=== PATIENT | male | born 1995 | race Caucasian/White ===

== ENCOUNTER 2017-11-10 15:14 | Emergency (ER) | payer SELFPAY ==
[2017-11-10] VITALS (7 sets, daily range): BP systolic 109–133; BP diastolic 58–76; PULSE 71–76; RESP 16–18; TEMP 97.5; O2SAT 97–99
[~2017-11-10] VITALS: Ht 154.9 cm; Wt 68.0 kg
--- NOTE | 2017-11-10 17:18 | PD ---
HPI Chief Complaint: Abdominal Pain Time Seen by Provider: 16:56 Travel History International Travel<30 days: No Contact w/Intl Traveler<30days: No History of Present Illness HPI This is a 22-year-old male who presents to the emergency department with 4 days of lower abdominal pain, constant, severe, radiating down into the penis and scrotum with no associated fevers or chills. He does have some dysuria. He denies any diarrhea or vomiting. He denies any discharge from his penis. He says his never had pain like this before. He denies any hematuria. He's never had surgery on his abdomen. There is a significantly which barrier and history is obtained via video room maid. [facility] Past Medical History Medical History: Denies Significant Hx Past Surgical History Surgical History: No Previous Surgery Social History Narrative Social History Moved from [facility] 3 years ago Alcohol Use: No Tobacco Use: No Allergies-Medications (Allergen,Severity, Reaction): Coded Allergies: No Known Allergies (Verified Allergy, Unknown, 11/10/17) Reported Meds & Prescriptions Reported Meds & Active Scripts Active No Active Prescriptions or Reported Medications Review of Systems Except as stated in HPI: all other systems reviewed are Neg Physical Exam Narrative GENERAL:Well appearing, no acute distress SKIN: Focused skin assessment warm and dry. HEAD: Atraumatic. Normocephalic. EYES: Pupils equal and round. No injection or drainage. ENT: Moist mucous membranes NECK: Trachea midline. CARDIOVASCULAR: Regular rate and rhythm. No murmur appreciated. RESPIRATORY: Clear to auscultation. Breath sounds equal bilaterally. GASTROINTESTINAL: Abdomen soft, tender to palpation in the suprapubic region and left groin area : Tender to palpation of the scrotum bilaterally with no urethral discharge. Normal cremasteric reflex bilaterally. MUSCULOSKELETAL: No obvious deformities. NEUROLOGICAL: Awake and alert. No obvious cranial nerve deficits. Moving all extremities. PSYCHIATRIC: Appropriate mood and affect; insight and judgment normal. Data Data Last Documented VS Vital Signs Date Time Temp Pulse Resp B/P (MAP) Pulse Ox O2 Delivery O2 Flow Rate FiO2 11/10/17 18:15 71 18 112/65 (81) 97 Room Air 11/10/17 17:23 97.5 Orders Orders Complete Blood Count With Diff (11/10/17 17:08) Comprehensive Metabolic Panel (11/10/17 17:08) Lipase (12/18/17 17:08) Urinalysis - C+S If Indicated (11/10/17 17:08) Ct Abd/Pel W/O Iv Contrast (11/10/17 17:08) Iv Access Insert/Monitor (11/10/17 17:08) Ecg Monitoring (11/10/17 17:08) Oximetry (11/10/17 17:08) Us Testicles W Doppler (11/10/17 ) Morphine Inj (Morphine Inj) (11/10/17 18:00) Labs Laboratory Tests Test 11/10/17 17:15 11/10/17 17:20 Urine Color YELLOW Urine Turbidity CLOUDY Urine pH 8.0 Urine Specific [place] 1.024 Urine Protein NEG mg/dL Urine Glucose (UA) NEG mg/dL Urine Ketones NEG mg/dL Urine Occult Blood NEG Urine Nitrite NEG Urine Bilirubin NEG Urine Leukocyte Esterase NEG Urine Squamous Epithelial Cells 0-5 /hpf Urine Amorphous Sediment LARGE Microscopic Urinalysis Comment CULT NOT INDICATED White Blood Count 8.1 TH/MM3 Red Blood Count 5.16 MIL/MM3 Hemoglobin 15.3 GM/DL Hematocrit 45.7 % Mean Corpuscular Volume 88.6 FL Mean Corpuscular Hemoglobin 29.7 PG Mean Corpuscular Hemoglobin Concent 33.5 % Red Cell Distribution Width 12.7 % Platelet Count 294 TH/MM3 Mean Platelet Volume 7.4 FL Neutrophils (%) (Auto) 62.2 % Lymphocytes (%) (Auto) 26.8 % Monocytes (%) (Auto) 7.7 % Eosinophils (%) (Auto) 1.2 % Basophils (%) (Auto) 2.1 % Neutrophils # (Auto) 5.0 TH/MM3 Lymphocytes # (Auto) 2.2 TH/MM3 Monocytes # (Auto) 0.6 TH/MM3 Eosinophils # (Auto) 0.1 TH/MM3 Basophils # (Auto) 0.2 TH/MM3 CBC Comment DIFF FINAL Differential Comment Blood Urea Nitrogen 19 MG/DL Creatinine 1.10 MG/DL Random Glucose 98 MG/DL Total Protein 7.8 GM/DL Albumin 4.1 GM/DL Calcium Level 8.7 MG/DL Alkaline Phosphatase 66 U/L Aspartate Amino Transf (AST/SGOT) 21 U/L Alanine Aminotransferase (ALT/SGPT) 28 U/L Total Bilirubin 0.4 MG/DL Sodium Level 138 MEQ/L Potassium Level 4.5 MEQ/L Chloride Level 104 MEQ/L Carbon Dioxide Level 28.6 MEQ/L Anion Gap 5 MEQ/L Estimat Glomerular Filtration Rate 83 ML/MIN Lipase 138 U/L MDM Medical Decision Making Medical Screen Exam Complete: Yes Emergency Medical Condition: Yes Interpretation(s) Afebrile, no tachycardia, normotensive No leukocytosis Electrolytes are reassuring Urinalysis is negative for infection CT abdomen and pelvis is negative for kidney stone Differential Diagnosis Nephrolithiasis, inguinal hernia, testicular torsion, epididymitis, musculoskeletal pain Narrative Course This is a 22-year-old [place]-speaking only male who presents to the emergency department with left-sided groin pain that's been going on for 4 days. He appears uncomfortable on exam. He is tender in the very low groin area and suprapubic region. I don't appreciate an obvious hernia, and he has bilateral intact cremasteric reflexes with no obvious testicular torsion on clinical exam. Labs are obtained which were reassuring. CT abdomen and pelvis was negative for kidney stone. Scrotal ultrasound will be obtained to definitively rule out testicular torsion. If negative patient can be treated for likely musculoskeletal pain and discharged. Scripts No Active Prescriptions or Reported Meds Nataly Oquendo MD Nov 10, 2017 17:18
[2017-11-10 17:30] LABS: BASOPHIL # 0.2 TH/MM3 (0-0.2); BASOPHIL % 2.1 % (0.0-2.0); EOSINOPHIL # 0.1 TH/MM3 (0-0.4); EOSINOPHIL % 1.2 % (0.0-4.0); HEMATOCRIT 45.7 % (39.0-51.0); HEMOGLOBIN 15.3 GM/DL (13.0-17.0); LYMPH % 26.8 % (9.0-44.0); LYMPHOCYTE # 2.2 TH/MM3 (1.0-4.8); MEAN CELL VOLUME 88.6 FL (80.0-100.0); MEAN CORPUSCULAR HEMOGLOBIN 29.7 PG (27.0-34.0); MEAN CORPUSCULAR HGB CONC 33.5 % (32.0-36.0); MEAN PLATELET VOLUME 7.4 FL (7.0-11.0); MONO % 7.7 % (0.0-8.0); MONOCYTE # 0.6 TH/MM3 (0-0.9); NEUT % 62.2 % (16.0-70.0); PLATELET COUNT 294 TH/MM3 (150-450); RED BLOOD COUNT 5.16 MIL/MM3 (4.50-5.90); RED CELL DISTRIBUTION WIDTH 12.7 % (11.6-17.2); WHITE BLOOD COUNT 8.1 TH/MM3 (4.0-11.0)
[2017-11-10 17:44] LABS: CHLORIDE 104 MEQ/L (98-107); SODIUM (NA) 138 MEQ/L (136-145)
[2017-11-10 17:48] LABS: ALBUMIN 4.1 GM/DL (3.4-5.0); BICARBONATE 28.6 MEQ/L (21.0-32.0); CALCIUM 8.7 MG/DL (8.5-10.1); GLUCOSE,RANDOM 98 MG/DL (74-106); LIPASE 138 U/L (73-393)
[2017-11-10 17:49] LABS: BLOOD UREA NITROGEN 19 MG/DL (7-18)
[2017-11-10 17:51] LABS: ALT (GPT) 28 U/L (12-78); AST (GOT) 21 U/L (15-37)
[2017-11-10 17:52] LABS: GLOMERULAR FILTRATION RATE 83 ML/MIN (>89)
[2017-11-10 17:53] LABS: TOTAL BILIRUBIN ADULT 0.4 MG/DL (0.2-1.0); TOTAL PROTEIN 7.8 GM/DL (6.4-8.2)
[2017-11-10 17:54] LABS: ALKALINE PHOSPHATASE 66 U/L (45-117)
[2017-11-10] MEDS ORDERED: MORPHINE SULFATE 4 MG/ML INJ IV PUSH ONE (18:00)
--- NOTE | 2017-11-10 18:11 | RADRPT ---
EXAM DATE/TIME: 11/10/2017 17:44 [facility] COMPARISON: No previous studies available for comparison. INDICATIONS : Lower abdominal pain radiating to inguinal area. ORAL CONTRAST: No oral contrast ingested. RADIATION DOSE: 8.70 CTDIvol (mGy) ; Patient motion MEDICAL HISTORY : None SURGICAL HISTORY : None. ENCOUNTER: Initial ACUITY: 4 - 6 days PAIN SCALE: 5/10 LOCATION: lower quadrant TECHNIQUE: Renal colic protocol. Volumetric scanning of the abdomen and pelvis was performed. Using automated exposure control and adjustment of the mA and/or kV according to patient size, radiation dose was kep t as low as reasonably achievable to obtain optimal diagnostic quality images. DICOM format image da ta is available electronically for review and comparison. FINDINGS: Right side: No calcified renal stones. No evidence of hydronephrosis. No stones along the right ureter. Left side: No calcified stones or hydronephrosis. Normal diameter left ureter without calcified stones. Bladder: Smooth margins. No calcifications within the lumen. Other: No dilated loops of small or large bowel. No calcified gallstones. Abdominal aorta is normal in dim ension. No evidence of free fluid. Osseous structures are grossly intact. CONCLUSION: Negative renal colic CT. Coy Welch MD on November 10, 2017 at 18:05 Board Certified Radiologist. This report was verified electronically.
[2017-11-10 18:15] LABS: BILIRUBIN, URINE NEG (NEG); BLOOD, URINE NEG (NEG); GLUCOSE,URINE NEG (NEG); KETONE, URINE NEG (NEG); NITRITE,URINE NEG (NEG); URINE LEUKOCYTE ESTERASE NEG (NEG)
[2017-11-10 18:18] LABS: URINE COLOR YELLOW (YELLW/STRAW)
[2017-11-10 18:19] LABS: AMORPHOUS SEDIMENT, URINE LARGE; SQUAMOUS EPITHELIAL CELL URINE 0-5 /hpf (0-5)
--- NOTE | 2017-11-10 19:26 | PD ---
Data Data Last Documented VS Vital Signs Date Time Temp Pulse Resp B/P (MAP) Pulse Ox O2 Delivery O2 Flow Rate FiO2 11/10/17 20:48 77 16 109/58 (75) 97 11/10/17 19:00 Room Air 11/10/17 17:23 97.5 Orders Orders Complete Blood Count With Diff (11/10/17 17:08) Comprehensive Metabolic Panel (11/10/17 17:08) Lipase (11/10/17 17:08) Urinalysis - C+S If Indicated (11/10/17 17:08) Ct Abd/Pel W/O Iv Contrast (11/10/17 17:08) Iv Access Insert/Monitor (11/10/17 17:08) Ecg Monitoring (11/10/17 17:08) Oximetry (11/10/17 17:08) Us Testicles W Doppler (11/10/17 ) Morphine Inj (Morphine Inj) (11/10/17 18:00) Ed Discharge Order (11/10/17 19:49) Ciprofloxacin (Cipro) (11/10/17 20:15) Labs Laboratory Tests Test 11/10/17 17:15 11/10/17 17:20 Urine Color YELLOW Urine Turbidity CLOUDY Urine pH 8.0 Urine Specific [place] 1.024 Urine Protein NEG mg/dL Urine Glucose (UA) NEG mg/dL Urine Ketones NEG mg/dL Urine Occult Blood NEG Urine Nitrite NEG Urine Bilirubin NEG Urine Leukocyte Esterase NEG Urine Squamous Epithelial Cells 0-5 /hpf Urine Amorphous Sediment LARGE Microscopic Urinalysis Comment CULT NOT INDICATED White Blood Count 8.1 TH/MM3 Red Blood Count 5.16 MIL/MM3 Hemoglobin 15.3 GM/DL Hematocrit 45.7 % Mean Corpuscular Volume 88.6 FL Mean Corpuscular Hemoglobin 29.7 PG Mean Corpuscular Hemoglobin Concent 33.5 % Red Cell Distribution Width 12.7 % Platelet Count 294 TH/MM3 Mean Platelet Volume 7.4 FL Neutrophils (%) (Auto) 62.2 % Lymphocytes (%) (Auto) 26.8 % Monocytes (%) (Auto) 7.7 % Eosinophils (%) (Auto) 1.2 % Basophils (%) (Auto) 2.1 % Neutrophils # (Auto) 5.0 TH/MM3 Lymphocytes # (Auto) 2.2 TH/MM3 Monocytes # (Auto) 0.6 TH/MM3 Eosinophils # (Auto) 0.1 TH/MM3 Basophils # (Auto) 0.2 TH/MM3 CBC Comment DIFF FINAL Differential Comment Blood Urea Nitrogen 19 MG/DL Creatinine 1.10 MG/DL Random Glucose 98 MG/DL Total Protein 7.8 GM/DL Albumin 4.1 GM/DL Calcium Level 8.7 MG/DL Alkaline Phosphatase 66 U/L Aspartate Amino Transf (AST/SGOT) 21 U/L Alanine Aminotransferase (ALT/SGPT) 28 U/L Total Bilirubin 0.4 MG/DL Sodium Level 138 MEQ/L Potassium Level 4.5 MEQ/L Chloride Level 104 MEQ/L Carbon Dioxide Level 28.6 MEQ/L Anion Gap 5 MEQ/L Estimat Glomerular Filtration Rate 83 ML/MIN Lipase 138 U/L MDM Medical Record Reviewed: Yes Supervised Visit with PHUONG: No Narrative Course CBC & BMP Diagram 11/10/17 17:20 Total Protein 7.8, Albumin 4.1, Calcium Level 8.7, Alkaline Phosphatase 66, Aspartate Amino Transf (AST/SGOT) 21, Alanine Aminotransferase (ALT/SGPT) 28, Total Bilirubin 0.4 Last Impressions Abdomen/Pelvis CT 11/10/17 1708 Signed Impressions: Service Date/Time: Friday, November 10, 2017 17:44 - CONCLUSION: Negative renal colic CT. Coy Welch MD Scrotum Ultrasound 11/10/17 0000 Signed Impressions: Service Date/Time: Friday, November 10, 2017 18:34 - CONCLUSION: 1. Normal sonographic appearance of the testicles and intact flow by color Doppler. 2. Small bilateral hydroceles. Coy Welch MD Etiology of the patient's complaint is nonspecific. Short course of ciprofloxacin is not totally unreasonable given the relative prominence of inguinal lymph nodes bilaterally. Patient reports to the suprapubic/pubic bones distribution is the principal area of pain and on exam there is no tenderness there. Increased hydration. Motrin as needed discussed. Patient reassured her verbalized understanding and agreement. He was offered a Georgian- speaking helmet coverer however was in agreement with the undersigned providing translation services. Diagnosis Primary Impression: Groin pain Qualified Codes: R10.30 - Lower abdominal pain, unspecified Referrals: Primary Care Physician 2 days Med/Other Pt SpecificInfo: Prescription(s) given Scripts Ibuprofen (Ibuprofen) 600 Mg Tab 600 MG PO Q8H Y for PAIN for 5 Days, #15 TAB 0 Refills Prov: Kolton Ortiz MD 11/10/17 Ciprofloxacin (Cipro) 500 Mg Tab 500 MG PO BID for Infection for 5 Days, #10 TAB 0 Refills Prov: Kolton Ortiz MD 11/10/17 Disposition: 01 DISCHARGE HOME Condition: Stable Kolton Ortiz MD Nov 10, 2017 19:26
--- NOTE | 2017-11-10 19:34 | RADRPT ---
EXAM DATE/TIME: 11/10/2017 18:34 [facility] COMPARISON: No previous studies available for comparison. INDICATIONS : Scrotal pain. MEDICAL HISTORY : Lower abdominal pain that radiates to the penis and scrotum. SURGICAL HISTORY : None. ENCOUNTER: Initial ACUITY: 4 - 6 days PAIN SCORE: 5/10 LOCATION: Bilateral scrotum. MEASUREMENTS: RIGHT TESTICLE: 4.3 x 3.0 x 2.2cm LEFT TESTICLE: 4.1 x 2.8 x 2.3cm FINDINGS: RIGHT TESTICLE: Homogeneous echotexture without intra or extratesticular mass. Blood flow is symmetric and within no rmal limits. A small hydrocele. No evidence of varicocele. Epididymis is within normal limits. LEFT TESTICLE: Homogeneous echotexture without intra or extratesticular mass. Blood flow is symmetric and within no rmal limits. Small hydrocele. No evidence of varicocele.. Epididymis is within normal limits. SCROTUM: Within normal limits. CONCLUSION: 1. Normal sonographic appearance of the testicles and intact flow by color Doppler. 2. Small bilateral hydroceles. Coy Welch MD on November 10, 2017 at 19:31 Board Certified Radiologist. This report was verified electronically.
[2017-11-10] MEDS ORDERED: CIPR-9 PO (20:08)
[2017-11-10] MEDS ORDERED: IBUP-232 PO (20:08)
[2017-11-10] MEDS ORDERED: CIPROFLOXACIN 500 MG TAB PO ONE (20:15)
== END 2017-11-10 21:14 | disposition home or self-care (01) ==
LOC: PHED 15:14
DX: R10.30 Lower abdominal pain, unspecified (principal); R30.0 Dysuria
CPT/HCPCS: 74176; 76870; 80053; 81001; 83690; 85025; 93975; 96374; 99285; J2270